=== PATIENT | female | born 1985 | race Caucasian/White ===

== ENCOUNTER 2017-10-01 12:18 | Inpatient (IN) | payer OTHER ==
[2017-10-01 13:57] VITALS: BMI 21.6
[2017-10-01] MEDS ORDERED: ACETAMINOPHEN 325 MG TABLET (FP) PO PRN (17:28)
[2017-10-01] MEDS ORDERED: MAGNESIUM CITRATE 300 ML BOTTLE PO PRN (17:28)
[2017-10-01] MEDS ORDERED: MAGNESIUM HYDROX 2400MG/30ML ORAL SUSPENSION 30 ML CUP PO PRN (17:28)
[2017-10-01] MEDS ORDERED: MENTHOL/PHENOL 1 EACH UD MM PRN (17:28)
[2017-10-01] MEDS ORDERED: IBUPROFEN 400 MG TABLET (FP) PO PRN (17:28)
[2017-10-01] MEDS ORDERED: hydrOXYzine PAMOATE 50 MG CAPSULE (FP) PO PRN (17:28)
[2017-10-01] MEDS ORDERED: LOPERAMIDE HCL 2 MG CAPSULE PO PRN (17:28)
[2017-10-01] MEDS ORDERED: MAG HYDROX/AL HYDROX/SIMETH 30 ML UNIT-DOSE CUP PO PRN (17:28)
[2017-10-01] MEDS ORDERED: P-EPHED 60MG/TRIPROLIDI 2.5MG TABLET PO PRN (17:28)
--- NOTE | 2017-10-01 17:28 | HP ---
"CIWA Score - CIWA Score Nausea/Vomitin Muscle Tremors: 4-Moderate,w/Arms Extend Anxiety: 3 Agitation: 3 Paroxysmal Sweats: 3 Orientation: 0-Oriented Tacttile Disturbances: 0-None Auditory Disturbances: 0-None Visual Disturbances: 0-None Headache: 0-None Present CIWA-Ar Total Score: 16 Admission ROS S - HPI Chief Complaint: alcohol and xanax withdrawal sx, wants to detox Allergies/Adverse Reactions: Allergies Allergy/AdvReac Type Severity Reaction Status Date / Time No Known Drug Allergies Allergy Verified 10/01/17 14:13 tunafish Allergy Intermediate Swelling Uncoded 10/01/17 14:12 History of Present Illness: 32 yo f with h/o opioid use disorder on MMTP ldm yesterday 40mg has not yet been verified , reports seziures when she stops using xanax and alcohol last seizure 3 days ago here for inpatietn detoxifciation form alcohol and xanax. Search Terms: Mechelle Jones, 1985 Search Date: 10/01/2017 05:33:23 PM The Drug Utilization Report below displays all of the controlled substance prescriptions, if any, that your patient has filled in the last twelve months. The information displayed on this report is compiled from pharmacy submissions to the Department, and accurately reflects the information as submitted by the pharmacies. This report was requested by: Frandy Del Toro | Reference #: [id number] There are no results for the search terms that you entered Patient reorts taking [place] clonidine to stop her seizures but no record. first time to detox, has been to rehab 3 years ago at [facility], 11 months sober at [facility]. o c/o withdrawal sx. PMHX bipolar do, no si at this time Exam Limitations: No Limitations - Ebola screening Have you traveled outside of the country in the last 21 days: No Have you had contact with anyone from an Ebola affected area: No Have you been sick,other than usual withdrawal symptoms: No Do you have a fever: No - Review of Systems Constitutional: Diaphoresis, Loss of Appetite, Night Sweats, Changes in sleep, Weakness, Unexplained wgt Loss EENT: reports: No Symptoms Reported Respiratory: reports: No Symptoms reported Cardiac: reports: No Symptoms Reported GI: reports: Nausea, Poor Appetite, Poor Fluid Intake, Indigestion, Abdominal cramping : reports: Dysuria, Discharge (whitish) Musculoskeletal: reports: Back Pain (chronic back pain) Integumentary: reports: Flushing, Sweating Neuro: reports: Headache, Seizure (withdrawl seizures last one few days ago), Tremors, Weakness, Unsteady Gait Endocrine: reports: No Symptoms Reported Hematology: reports: No Symptoms Reported Psychiatric: reports: Judgement Intact, Mood/Affect Appropiate, Orientated x3, Anxious, Depressed Other Systems: Reviewed and Negative Patient History - Patient Medical History Hx Anemia: No Hx Asthma: No Hx Chronic Obstructive Pulmonary Disease (COPD): No Hx Cancer: No Hx Cardiac Disorders: No Hx Congestive Heart Failure: No Hx Hypertension: No Hx Hypercholesterolemia: No Hx Pacemaker: No HX Cerebrovascular Accident: No Hx Seizures: Yes (09/30/17) Hx Dementia: No Hx Diabetes: No Hx Gastrointestinal Disorders: No Hx Liver Disease: No Hx Genitourinary Disorders: No Hx Sexually Transmitted Disorders: No Hx Renal Disease (ESRD): No Hx Thyroid Disease: No Hx Human Immunodeficiency Virus (HIV): No Hx Hepatitis C: Yes (no treatment to date) Hx Depression: Yes Hx Suicide Attempt: No Hx Bipolar Disorder: Yes Hx Schizophrenia: No - Patient Surgical History Past Surgical History: Yes Hx Appendectomy: Yes (2014) Anesthesia Reaction: No - PPD History Previous Implant?: Yes Documented Results: Negative w/o proof Implanted On Prior R Admission?: No PPD to be Administered?: Yes - Reproductive History Patient is a Female of Child Bearing Age (11 -55 yrs old): Yes Last Menstrual Period: 09/25/17 Patient : No - Smoking Cessation Smoking history: Current every day smoker Have you smoked in the past 12 months: Yes Aproximately how many cigarettes per day: 25 Hx Chewing Tobacco Use: No Initiated information on smoking cessation: Yes 'Breaking Loose' booklet given: 10/01/17 - Substance & Tx. History Hx Alcohol Use: Yes Hx Substance Use: Yes Substance Use Type: Alcohol, Cocaine, Heroin, Opiates, Prescribed, Tranquilizers Hx Substance Use Treatment: Yes (MMTP, rehab at [facility]) - Substances Abused Alcohol Route: Oral Frequency: Daily Amount used: beer(3-4 6 pks 12 pz cans) Age of first use: 17 Date of Last Use: 09/30/17 Heroin Route: Injection Frequency: Daily Amount used: 30 bags Age of first use: 17 Date of Last Use: 09/29/17 Alprazolam (Xanax) Route: Oral Frequency: Daily Amount used: 6 pills Age of first use: 19 Date of Last Use: 09/29/17 Crack Route: Smoking Frequency: Daily Amount used: $100 Age of first use: 17 Date of Last Use: 09/29/17 Marijuana/Hashish Route: Smoking Frequency: Daily Amount used: $20 Age of first use: 15 Date of Last Use: 09/30/17 Admission Physical Exam S - Vital Signs Vital Signs: Vital Signs - 24 hr 10/01/17 13:54 Temperature 96.9 F L Pulse Rate 78 Respiratory 20 Rate Blood Pressure 104/66 - Physical General Appearance: Yes: Nourished, Appropriately Dressed, Disheveled, Mild Distress, Moderate Distress, Thin, Tremorous, Irritable, Sweating, Anxious HEENTM: Yes: Within Normal Limits, EOMI, Hearing grossly Normal, Normal ENT Inspection, Normocephalic, Normal Voice, LILIAN, Pharynx Normal Respiratory: Yes: Within Normal Limits, Chest Non-Tender, Lungs Clear, Normal Breath Sounds, No Respiratory Distress, No Accessory Muscle Use Neck: Yes: Within Normal Limits, No masses,lesions,Nodules, Supple, Trachea in good position Breast: Yes: Breast Exam Deferred Cardiology: Yes: Within Normal Limits, Regular Rhythm, Regular Rate, S1, S2 Abdominal: Yes: Normal Bowel Sounds, Non Tender, Flat, Soft, Tenderness Genitourinary: Yes: Within Normal Limits Back: Yes: Within Normal Limits, Normal Inspection Musculoskeletal: Yes: full range of Motion, Gait Steady, Pelvis Stable, Back pain Extremities: Yes: Normal Capillary Refill, Normal Range of Motion, Non-Tender, Tremors Neurological: Yes: recycling manager II-XII NML intact, Fully Oriented, Alert, Motor Strength 5/5, Normal Response, Depressed Affect Integumentary: Yes: Normal Color, Warm, Diaphoresis, Moist Lymphatic: Yes: Within Normal Limits - Addiitonal Findings: withdrawal sx - Diagnostic (1) Alcohol dependence with uncomplicated withdrawal Current Visit: Yes Status: Acute (2) Cannabis abuse, uncomplicated Current Visit: Yes Status: Acute (3) Nicotine dependence Current Visit: Yes Status: Acute (4) Opioid dependence on agonist therapy Current Visit: Yes Status: Acute (5) Sedative, hypnotic or anxiolytic dependence with withdrawal, uncomplicated Current Visit: Yes Status: Acute (6) Cocaine dependence Current Visit: Yes Status: Acute (7) Seizures Current Visit: Yes Status: Acute (8) Vaginal discharge Current Visit: Yes Status: Acute (9) Toothache Current Visit: Yes Status: Acute Cleared for Admission [facility] - Detox or Rehab [facility] Level of Care: Medically Managed Detox Regimen/Protocol: Valium [facility] Breath Alcohol Content Breath Alcohol Content: 0 Urine Pregancy Test - Result Urine Test Results: Negative- NO Line Present Urine Drug Screen - Results Drug Screen Negative: No Urine Drug Screen Results: RIGO-Cocaine, MTD-Methadone"
[2017-10-01] MEDS ORDERED: diazePAM 5 MG TABLET PO ONE (18:30)
[2017-10-01] MEDS: PANTOPRAZOLE 40 MG TABLET (FP) PO SCH (18:39)
[2017-10-01] MEDS: NICOTINE 21 MG/24 HOURS TOPICAL PATCH TD SCH (20:09)
[2017-10-01] MEDS: MAG HYDROX/ALH/SMC/DPHA/LIDO 180 ML MOUTHWASH MM SCH (20:09)
[2017-10-01] MEDS: NAPROXEN 500 MG TABLET (FP) PO SCH (22:13)
[2017-10-01] MEDS: MICONAZOLE NITRATE 100 MG SUPP SUPP.VAG PV SCH (22:13)
[2017-10-01] MEDS: THIAMINE HCL 100 MG TABLET (FP) PO SCH (22:13)
[2017-10-01] MEDS: diazePAM 5 MG TABLET PO SCH (22:14)
[2017-10-01] MEDS: NICOTINE POLACRILEX 4 MG GUM BC PRN (22:15)
[2017-10-02] MEDS: MAG HYDROX/ALH/SMC/DPHA/LIDO 180 ML MOUTHWASH MM SCH ×4 (01:03→17:31)
[2017-10-02] MEDS: diazePAM 5 MG TABLET PO SCH ×3 (06:55→22:14)
[2017-10-02 09:09] LABS: HIV 1 & 2 AB NEGATIVE; HIV 1 AGp24 NEGATIVE
[2017-10-02 09:56] LABS: MCH 25.6 pg (25.7-33.7); MCHC 31.2 g/dl (32.0-36.0); MEAN PLT VOLUME 11.3 fl (7.5-11.1); PLATELET COUNT 190 K/MM3 (134-434); RDW 18.9 % (11.6-15.6); WHITE BLOOD COUNT 5.9 K/mm3 (4.0-10.0)
[2017-10-02 10:01] LABS: ALBUMIN 3.5 g/dl (3.4-5.0); ANION GAP 6 (8-16); CALCIUM 9.2 mg/dL (8.5-10.1); CO2 31 mmol/L (21-32); GLUCOSE,RANDOM 92 mg/dL (74-106)
[2017-10-02 10:05] LABS: ALK PHOS 78 U/L (45-117); BILIRUBIN,TOTAL 0.6 mg/dL (0.2-1.0); CREATININE 0.7 mg/dL (0.55-1.02); SGOT/AST 59 U/L (15-37); SGPT/ALT 48 U/L (12-78)
[2017-10-02 10:27] LABS: SICKLE CELL SCREEN NEGATIVE (NEGATIVE)
[2017-10-02] MEDS: NAPROXEN 500 MG TABLET (FP) PO SCH ×2 (10:54→22:14)
[2017-10-02] MEDS: PANTOPRAZOLE 40 MG TABLET (FP) PO SCH (10:54)
[2017-10-02] MEDS: PRENATAL VITAMINS W/ FOLIC ACID TABLET (FP) PO SCH (10:54)
[2017-10-02] MEDS: METHADONE HCL 40 MG DISPERSABLE TABLET PO SCH (10:54)
[2017-10-02] MEDS: NICOTINE POLACRILEX 4 MG GUM BC PRN (10:57)
[2017-10-02] MEDS: NICOTINE 21 MG/24 HOURS TOPICAL PATCH TD SCH (10:57)
--- NOTE | 2017-10-02 11:16 | PN ---
S CIWA - CIWA Score Nausea/Vomitin Muscle Tremors: 3 Anxiety: 3 Agitation: 2 Paroxysmal Sweats: 1-Minimal Palms Moist Orientation: 0-Oriented Tacttile Disturbances: 1-Very Mild Itch/Numbness Auditory Disturbances: 1-Very Mild Visual Disturbances: 0-None Headache: 2-Mild CIWA-Ar Total Score: 16 BHS Progress Note (SOAP) Subjective: alert,irritable,anxious,interrupted sleep,tremor,pain in the body Objective: 10/02/17 11:14 Vital Signs Temperature 97.7 F 10/02/17 10:18 Pulse Rate 68 10/02/17 10:18 Respiratory Rate 18 10/02/17 10:18 Blood Pressure 119/59 10/02/17 10:18 O2 Sat by Pulse Oximetry (%) ekg nsr st in v2 no chest pain,no sob,no dizziness Laboratory Last Values WBC 5.9 K/mm3 (4.0-10.0) 10/02/17 06:00 RBC 4.61 M/mm3 (3.60-5.2) 10/02/17 06:00 Hgb 11.8 GM/dL (10.7-15.3) 10/02/17 06:00 Hct 37.8 % (32.4-45.2) 10/02/17 06:00 MCV 82.0 fl (80-96) 10/02/17 06:00 MCH 25.6 pg (25.7-33.7) L 10/02/17 06:00 MCHC 31.2 g/dl (32.0-36.0) L 10/02/17 06:00 RDW 18.9 % (11.6-15.6) H 10/02/17 06:00 Plt Count 190 K/MM3 (134-434) 10/02/17 06:00 MPV 11.3 fl (7.5-11.1) H 10/02/17 06:00 Sickle Cell Screen Negative (NEGATIVE) 10/02/17 06:00 Sodium 146 mmol/L (136-145) H 10/02/17 06:00 Potassium 4.1 mmol/L (3.5-5.1) 10/02/17 06:00 Chloride 109 mmol/L (98-107) H 10/02/17 06:00 Carbon Dioxide 31 mmol/L (21-32) 10/02/17 06:00 Anion Gap 6 (8-16) L 10/02/17 06:00 BUN 12 mg/dL (7-18) 10/02/17 06:00 Creatinine 0.7 mg/dL (0.55-1.02) 10/02/17 06:00 Creat Clearance w eGFR > 60 (>60) 10/02/17 06:00 Random Glucose 92 mg/dL (74-106) 10/02/17 06:00 Calcium 9.2 mg/dL (8.5-10.1) 10/02/17 06:00 Total Bilirubin 0.6 mg/dL (0.2-1.0) 10/02/17 06:00 AST 59 U/L (15-37) H 10/02/17 06:00 ALT 48 U/L (12-78) 10/02/17 06:00 Alkaline Phosphatase 78 U/L (45-117) 10/02/17 06:00 Total Protein 7.0 g/dl (6.4-8.2) 10/02/17 06:00 Albumin 3.5 g/dl (3.4-5.0) 10/02/17 06:00 HIV 1&2 Antibody Screen Negative 10/01/17 15:00 HIV P24 Antigen Negative 10/01/17 15:00 Assessment: 10/02/17 11:15 withdrawal symptom Plan: continue detox
[2017-10-02] MEDS: guaiFENesin/D-METHORPHAN HB 10 ML UNIT-DOSE CUPS PO PRN (12:05)
[2017-10-02 14:33] LABS: URINE APPEARANCE CLOUDY; URINE BILIRUBIN NEGATIVE (NEGATIVE); URINE BLOOD NEGATIVE (NEGATIVE); URINE COLOR YELLOW; URINE GLUCOSE (UA) NEGATIVE (NEGATIVE); URINE KETONE NEGATIVE (NEGATIVE); URINE NITRITE NEGATIVE (NEGATIVE); URINE PROTEIN NEGATIVE (NEGATIVE); URINE UROBILINOGEN NEGATIVE mg/dL (0.2-1.0)
[2017-10-02] MEDS: diazePAM 5 MG TABLET PO PRN (17:31)
--- NOTE | 2017-10-02 18:28 | CONSULT ---
[facility] Psychiatric Consult - Data Date of interview: 10/02/17 Admission source: [facility] Identifying data: Approached for psychiatric interview.Patient is angry and irritable.Ms Jones REFUSED to talk to this advertising copy writer.
[2017-10-02 19:54] LABS: URINE LEUK ESTERASE 1+ (NEGATIVE)
[2017-10-02] MEDS: MICONAZOLE NITRATE 100 MG SUPP SUPP.VAG PV SCH (22:13)
[2017-10-02] MEDS: THIAMINE HCL 100 MG TABLET (FP) PO SCH (22:13)
[2017-10-02 23:10] LABS: URINE RBC 0-3 /hpf (0-3)
[2017-10-02 23:11] LABS: CALCIUM OXALATE CRYSTALS MANY /hpf (NONE SEEN)
[2017-10-03] MEDS: MAG HYDROX/ALH/SMC/DPHA/LIDO 180 ML MOUTHWASH MM SCH ×5 (00:29→23:20)
[2017-10-03] MEDS: METHADONE HCL 40 MG DISPERSABLE TABLET PO SCH (05:28)
[2017-10-03] MEDS: diazePAM 5 MG TABLET PO PRN (06:43)
[2017-10-03] MEDS: diazePAM 5 MG TABLET PO SCH ×2 (10:42→22:15)
[2017-10-03] MEDS: PRENATAL VITAMINS W/ FOLIC ACID TABLET (FP) PO SCH (10:42)
[2017-10-03] MEDS: NAPROXEN 500 MG TABLET (FP) PO SCH ×2 (10:42→22:15)
[2017-10-03] MEDS: PANTOPRAZOLE 40 MG TABLET (FP) PO SCH (10:42)
[2017-10-03] MEDS: NICOTINE 21 MG/24 HOURS TOPICAL PATCH TD SCH (10:43)
[2017-10-03] MEDS: NICOTINE POLACRILEX 4 MG GUM BC PRN (10:44)
--- NOTE | 2017-10-03 14:04 | PN ---
[facility] CIWA - CIWA Score Nausea/Vomitin-No Nausea/No Vomiting Muscle Tremors: 4-Moderate,w/Arms Extend Anxiety: 4-Mod. Anxious/Guarded Agitation: 3 Paroxysmal Sweats: 3 Orientation: 0-Oriented Tacttile Disturbances: 0-None Auditory Disturbances: 0-None Visual Disturbances: 0-None Headache: 0-None Present CIWA-Ar Total Score: 14 S Progress Note (SOAP) Subjective: Anxiety,tremors,sweating,interrupted sleep,restless Objective: 10/03/17 14:03 Vital Signs - 8 hr 10/03/17 10:00 Temperature 97.3 F L Pulse Rate 83 Respiratory 18 Rate Blood Pressure 121/64 Laboratory Tests 10/01/17 10/01/17 10/02/17 06:00 15:00 06:00 WBC 5.9 RBC 4.61 Hgb 11.8 Hct 37.8 MCV 82.0 MCH 25.6 L MCHC 31.2 L RDW 18.9 H Plt Count 190 MPV 11.3 H Sickle Cell Screen Negative Sodium Potassium Chloride Carbon Dioxide Anion Gap BUN Creatinine Creat Clearance w eGFR Random Glucose Calcium Total Bilirubin AST ALT Alkaline Phosphatase Total Protein Albumin Urine Color Urine Appearance Urine pH Ur Specific [place] Urine Protein Urine Glucose (UA) Urine Ketones Urine Blood Urine Nitrite Urine Bilirubin Urine Urobilinogen Ur Leukocyte Esterase Urine RBC Urine WBC Ur Epithelial Cells Calcium Oxalate Crystal RPR Titer Hepatitis C Antibody >11.0 H HIV 1&2 Antibody Screen Negative HIV P24 Antigen Negative 10/02/17 10/02/17 10/02/17 06:00 06:00 10:00 WBC RBC Hgb Hct MCV MCH MCHC RDW Plt Count MPV Sickle Cell Screen Sodium 146 H Potassium 4.1 Chloride 109 H Carbon Dioxide 31 Anion Gap 6 L BUN 12 Creatinine 0.7 Creat Clearance w eGFR > 60 Random Glucose 92 Calcium 9.2 Total Bilirubin 0.6 AST 59 H ALT 48 Alkaline Phosphatase 78 Total Protein 7.0 Albumin 3.5 Urine Color Yellow Urine Appearance Cloudy Urine pH 5.0 Ur Specific [place] 1.020 Urine Protein Negative Urine Glucose (UA) Negative Urine Ketones Negative Urine Blood Negative Urine Nitrite Negative Urine Bilirubin Negative Urine Urobilinogen Negative Ur Leukocyte Esterase 1+ H Urine RBC 0-3 Urine WBC 5-10 Ur Epithelial Cells 10-15 Calcium Oxalate Crystal Many RPR Titer Nonreactive Hepatitis C Antibody HIV 1&2 Antibody Screen HIV P24 Antigen labs noted Assessment: 10/03/17 14:04 Withdrawal sx. Plan: Continue detox
[2017-10-03] MEDS: THIAMINE HCL 100 MG TABLET (FP) PO SCH (22:15)
[2017-10-03] MEDS: MICONAZOLE NITRATE 100 MG SUPP SUPP.VAG PV SCH (22:15)
[2017-10-04] MEDS: MAG HYDROX/ALH/SMC/DPHA/LIDO 180 ML MOUTHWASH MM SCH ×3 (05:47→17:46)
[2017-10-04] MEDS: METHADONE HCL 40 MG DISPERSABLE TABLET PO SCH (05:53)
[2017-10-04] MEDS ORDERED: LIDOCAINE VISCOUS 2% ORAL/TOP 20 ML UNIT-DOSE CUP MM PRN (06:39)
[2017-10-04] MEDS: diazePAM 5 MG TABLET PO SCH ×2 (10:44→22:15)
[2017-10-04] MEDS: PANTOPRAZOLE 40 MG TABLET (FP) PO SCH (10:44)
[2017-10-04] MEDS: PRENATAL VITAMINS W/ FOLIC ACID TABLET (FP) PO SCH (10:44)
[2017-10-04] MEDS: NAPROXEN 500 MG TABLET (FP) PO SCH ×2 (10:44→22:15)
[2017-10-04] MEDS: NICOTINE POLACRILEX 4 MG GUM BC PRN (10:45)
[2017-10-04] MEDS: NICOTINE 21 MG/24 HOURS TOPICAL PATCH TD SCH (10:47)
--- NOTE | 2017-10-04 11:35 | PN ---
BHS Progress Note (SOAP) Subjective: Sweating,interrupted sleep,restless Objective: 10/04/17 11:33 Vital Signs - 8 hr 10/04/17 10/04/17 06:00 09:43 Temperature 98.7 F 97.4 F L Pulse Rate 87 75 Respiratory 18 18 Rate Blood Pressure 121/67 107/64 Laboratory Tests 10/01/17 10/01/17 10/02/17 06:00 15:00 06:00 WBC 5.9 RBC 4.61 Hgb 11.8 Hct 37.8 MCV 82.0 MCH 25.6 L MCHC 31.2 L RDW 18.9 H Plt Count 190 MPV 11.3 H Sickle Cell Screen Negative Sodium Potassium Chloride Carbon Dioxide Anion Gap BUN Creatinine Creat Clearance w eGFR Random Glucose Calcium Total Bilirubin AST ALT Alkaline Phosphatase Total Protein Albumin Urine Color Urine Appearance Urine pH Ur Specific [place] Urine Protein Urine Glucose (UA) Urine Ketones Urine Blood Urine Nitrite Urine Bilirubin Urine Urobilinogen Ur Leukocyte Esterase Urine RBC Urine WBC Ur Epithelial Cells Calcium Oxalate Crystal RPR Titer Hepatitis C Antibody >11.0 H HIV 1&2 Antibody Screen Negative HIV P24 Antigen Negative 10/02/17 10/02/17 10/02/17 06:00 06:00 10:00 WBC RBC Hgb Hct MCV MCH MCHC RDW Plt Count MPV Sickle Cell Screen Sodium 146 H Potassium 4.1 Chloride 109 H Carbon Dioxide 31 Anion Gap 6 L BUN 12 Creatinine 0.7 Creat Clearance w eGFR > 60 Random Glucose 92 Calcium 9.2 Total Bilirubin 0.6 AST 59 H ALT 48 Alkaline Phosphatase 78 Total Protein 7.0 Albumin 3.5 Urine Color Yellow Urine Appearance Cloudy Urine pH 5.0 Ur Specific [place] 1.020 Urine Protein Negative Urine Glucose (UA) Negative Urine Ketones Negative Urine Blood Negative Urine Nitrite Negative Urine Bilirubin Negative Urine Urobilinogen Negative Ur Leukocyte Esterase 1+ H Urine RBC 0-3 Urine WBC 5-10 Ur Epithelial Cells 10-15 Calcium Oxalate Crystal Many RPR Titer Nonreactive Hepatitis C Antibody HIV 1&2 Antibody Screen HIV P24 Antigen labs noted Assessment: 10/04/17 11:34 Withdrawal sx. Plan: Continue detox
[2017-10-04] MEDS: THIAMINE HCL 100 MG TABLET (FP) PO SCH (22:15)
[2017-10-04] MEDS: MICONAZOLE NITRATE 100 MG SUPP SUPP.VAG PV SCH (22:15)
[2017-10-05] MEDS: guaiFENesin/D-METHORPHAN HB 10 ML UNIT-DOSE CUPS PO PRN (04:39)
[2017-10-05] MEDS: METHADONE HCL 40 MG DISPERSABLE TABLET PO SCH (05:32)
[2017-10-05 06:25] VITALS: BP 100/53; PULSE 78; TEMP 97.5
[2017-10-05] MEDS: MAG HYDROX/ALH/SMC/DPHA/LIDO 180 ML MOUTHWASH MM SCH ×2 (06:38→07:38)
[2017-10-05] MEDS: NICOTINE POLACRILEX 4 MG GUM BC PRN ×2 (07:44→09:52)
--- NOTE | 2017-10-05 08:43 | DS ---
[facility] Detox Discharge Summary Admission Date: 10/01/17 Discharge Date: 10/05/17 - History Present History: Alcohol Dependence, Cannabis Dependence, Cocaine Dependence, Opioid Dependence, Sedative Dependence - Physical Exam Results Vital Signs: Vital Signs Temperature 97.5 F L 10/05/17 06:25 Pulse Rate 78 10/05/17 06:25 Respiratory Rate 18 10/05/17 06:25 Blood Pressure 100/53 10/05/17 06:25 O2 Sat by Pulse Oximetry (%) - Treatment Hospital Course: Detox Protocol Followed, Detoxed Safely, Responded well, Discharged Condition Good, Rehab Referral Accepted - Medication Discharge Medications: Ambulatory Orders Quetiapine Fumarate [Seroquel -] 100 mg PO HS 10/01/17 Sertraline HCl [Zoloft -] 50 mg PO DAILY 10/01/17 Venlafaxine HCl [Effexor -] 50 mg PO DAILY 10/01/17 - Diagnosis (1) Alcohol dependence with uncomplicated withdrawal Current Visit: Yes Status: Chronic (2) Cannabis abuse, uncomplicated Current Visit: Yes Status: Chronic (3) Cocaine dependence Current Visit: Yes Status: Chronic Qualifiers: Substance use status: uncomplicated Qualified Code(s): F14.20 - Cocaine dependence, uncomplicated (4) Nicotine dependence Current Visit: Yes Status: Chronic Qualifiers: Nicotine product type: cigarettes Substance use status: uncomplicated Qualified Code(s): F17.210 - Nicotine dependence, cigarettes, uncomplicated (5) Opioid dependence on agonist therapy Current Visit: Yes Status: Acute (6) Sedative, hypnotic or anxiolytic dependence with withdrawal, uncomplicated Current Visit: Yes Status: Chronic (7) Seizures Current Visit: Yes Status: Suspected (8) Toothache Current Visit: Yes Status: Acute (9) Vaginal discharge Current Visit: Yes Status: Chronic - AMA Did Patient Leave Against Medical Advice: No
[2017-10-05] MEDS: PRENATAL VITAMINS W/ FOLIC ACID TABLET (FP) PO SCH (09:40)
[2017-10-05] MEDS: PANTOPRAZOLE 40 MG TABLET (FP) PO SCH (09:40)
[2017-10-05] MEDS: NAPROXEN 500 MG TABLET (FP) PO SCH (09:41)
--- NOTE | 2017-10-05 09:41 | EKG ---
Test Reason : Blood Pressure : / mmHG Vent. Rate : 079 BPM Atrial Rate : 079 BPM P-R Int : 154 ms QRS Dur : 102 ms QT Int : 358 ms P-R-T Axes : 051 022 021 degrees QTc Int : 410 ms NORMAL SINUS RHYTHM SEPTAL INFARCT , AGE UNDETERMINED ABNORMAL ECG NO PREVIOUS ECGS AVAILABLE Confirmed by GALINA HUYNH, CARMELO ([id number]) on 10/05/2017 9:40:52 AM Referred By: CHERYL SWANN Confirmed By:CARMELO MOJICA MD
[2017-10-05] MEDS ORDERED: diazePAM 5 MG TABLET PO SCH (10:00)
== END 2017-10-05 09:45 | disposition home or self-care (01) | DRG 773 ==
LOC: YASAS 12:18 → Y6N 16:10
PROVIDERS: ADMIT Internal Medicine; ATTEND Internal Medicine
PROC: HZ2ZZZZ Detoxification Services for Substance Abuse Treatment (ICD-10-PCS; principal; 2017-10-01)
DX: F11.20 Opioid dependence, uncomplicated (principal); F13.230 Sedative, hypnotic or anxiolytic dependence with withdrawal, uncomplicated; F10.230 Alcohol dependence with withdrawal, uncomplicated; F14.20 Cocaine dependence, uncomplicated; F12.20 Cannabis dependence, uncomplicated; F17.210 Nicotine dependence, cigarettes, uncomplicated; F31.9 Bipolar disorder, unspecified; G40.909 Epilepsy, unspecified, not intractable, without status epilepticus; B18.2 Chronic viral hepatitis C; K08.89 Other specified disorders of teeth and supporting structures; N89.8 Other specified noninflammatory disorders of vagina
CPT/HCPCS: 36415; 80053; 81003; 81015; 85027; 85660; 86593; 86803; 87389; 87522; 93005; 93010

== ENCOUNTER 2019-03-24 13:33 | Inpatient (IN) | payer OTHER ==
[2019-03-24 18:21] VITALS: BMI 23.3
--- NOTE | 2019-03-24 20:32 | HP ---
CIWA Score Nausea/Vomitin-No Nausea/No Vomiting Muscle Tremors: 2 Anxiety: 0-No Anxiety, at Ease Agitation: 2 Paroxysmal Sweats: 3 Orientation: 1-Uncertain about Date Tacttile Disturbances: 1-Very Mild Itch/Numbness Auditory Disturbances: 0-None Visual Disturbances: 2-Mild Sensitivity Headache: 0-None Present CIWA-Ar Total Score: 11 - Admission Criteria [facility] Guidelines: Admission for Medically Managed Detox: Requires at least one of the followin. CIWA greater than 12 2. Seizures within the past 24 hours 3. Delirium tremens within the past 24 hours 4. Hallucinations within the past 24 hours 5. Acute intervention needed for co occurring medical disorder 6. Acute intervention needed for co occurring psychiatric disorder 7. Severe withdrawal that cannot be handled at a lower level of care (continued vomiting, continued diarrhea, abnormal vital signs) requiring intravenous medication and/or fluids 8. Patient presents the following: Acute intervention needed for co-occurring med or psych disorder Admission Criteria Met: Admission criteria met Admission ROS [facility] Chief Complaint: alcohol withdrawal Allergies/Adverse Reactions: Allergies Allergy/AdvReac Type Severity Reaction Status Date / Time Fish Containing Products Allergy Intermediate Swelling Verified 03/24/19 18:13 No Known Drug Allergies Allergy Verified 03/24/19 18:13 tunafish Allergy Intermediate Swelling Uncoded 03/24/19 18:13 History of Present Illness: Patient is a 34 yo female, homeless, with hx of alcohol dependence is here seeking inpatient detox. Patient reports was evaluated last night at [facility] for withdrawal symptoms. Patient is linked to Methadone Treatment Program unable to name the facility on maintenance 60 mg qd, last medicated 60mg , dose pending verification, continues heroin use. Reports remote benzo and alcohol withdrawal seizure in 2017. PMHX: Hep C. Psych: bipolar no treatment. Denies SI/HI. Exam Limitations: No Limitations - Ebola screening Have you traveled outside of the country in the last 21 days: No Have you had contact with anyone from an Ebola affected area: No Do you have a fever: No - Review of Systems Constitutional: Chills, Loss of Appetite, Changes in sleep (no sleep x 2 days), Weakness EENT: reports: No Symptoms Reported Respiratory: reports: No Symptoms reported Cardiac: reports: No Symptoms Reported GI: reports: Diarrhea (soiled self prior to assessment), Poor Fluid Intake, Abdominal cramping : reports: No Symptoms Reported Musculoskeletal: reports: No Symptoms Reported Integumentary: reports: Pruritus Neuro: reports: See HPI Endocrine: reports: No Symptoms Reported Hematology: reports: No Symptoms Reported Psychiatric: reports: Orientated x3, Depressed Other Systems: Reviewed and Negative Patient History - Patient Medical History Hx Anemia: No Hx Asthma: No Hx Chronic Obstructive Pulmonary Disease (COPD): No Hx Cancer: No Hx Cardiac Disorders: No Hx Congestive Heart Failure: No Hx Hypertension: No Hx Hypercholesterolemia: No Hx Pacemaker: No HX Cerebrovascular Accident: No Hx Seizures: Yes (09/30/17) Hx Dementia: No Hx Diabetes: No Hx Gastrointestinal Disorders: No Hx Liver Disease: No Hx Genitourinary Disorders: No Hx Sexually Transmitted Disorders: No Hx Renal Disease (ESRD): No Hx Thyroid Disease: No Hx Human Immunodeficiency Virus (HIV): No Hx Hepatitis C: Yes (no treatment to date) Hx Depression: Yes Hx Suicide Attempt: No Hx Bipolar Disorder: Yes Hx Schizophrenia: No - Patient Surgical History Past Surgical History: Yes Hx Appendectomy: Yes (2014) Anesthesia Reaction: No - PPD History Previous Implant?: No Documented Results: Negative w/proof Date: 10/03/17 PPD to be Administered?: Yes - Reproductive History Patient is a Female of Child Bearing Age (11 -55 yrs old): Yes (patient unable to provide last Menstrual period date) Last Menstrual Period: 09/25/17 Patient : No - Smoking Cessation Smoking history: Current every day smoker Have you smoked in the past 12 months: Yes Aproximately how many cigarettes per day: 25 Hx Chewing Tobacco Use: No Initiated information on smoking cessation: Yes 'Breaking Loose' booklet given: 03/24/19 - Substance & Tx. History Hx Alcohol Use: Yes Hx Substance Use: Yes Substance Use Type: Alcohol, Tranquilizers Hx Substance Use Treatment: Yes (Last detox one year ago, does not recall the name of the facility ) - Substances abused Heroin Substance route: Injection Frequency: Daily Amount used: 5 bags/day Age of first use: 17 Date of last use: 03/23/19 Alcohol Substance route: Oral Frequency: Daily Amount used: 2 cases of beer 12 oz + 1/2 pint Age of first use: 17 Date of last use: 03/24/19 Family Disease History - Family Disease History Family History: Unable to Obtain Admission Physical Exam BHS - Vital Signs Vital Signs: Vital Signs - 24 hr 03/24/19 18:18 Temperature 96.5 F L Pulse Rate 75 Respiratory 20 Rate Blood Pressure 114/56 L - Physical General Appearance: Yes: Disheveled (malodorous), Sweating, Anxious, Other ( lethargic but arousable, reports no sleep x 2 days) HEENTM: Yes: EOMI, Hearing grossly Normal, Normal ENT Inspection, Normocephalic , Normal Voice, LILIAN, Pharynx Normal, Tm's normal, Other (cheilitis) Respiratory: Yes: Chest Non-Tender, Lungs Clear, Normal Breath Sounds, No Respiratory Distress, No Accessory Muscle Use Neck: Yes: Within Normal Limits Breast: Yes: Breast Exam Deferred Cardiology: Yes: Regular Rhythm, Regular Rate Abdominal: Yes: Normal Bowel Sounds, Non Tender, Flat, Soft, Other (cheilitis) Genitourinary: Yes: Within Normal Limits Back: Yes: Normal Inspection Musculoskeletal: Yes: full range of Motion, Gait Steady, Pelvis Stable Extremities: Yes: Normal Capillary Refill, Normal Inspection, Normal Range of Motion, Non-Tender Neurological: Yes: shiatsu therapist II-XII NML intact, Fully Oriented, Alert, Motor Strength 5/5, Depressed Affect Integumentary: Yes: Normal Color, Warm, Diaphoresis Lymphatic: Yes: Within Normal Limits - Diagnostic (1) Opioid dependence on agonist therapy Current Visit: Yes Status: Acute (2) Alcohol dependence with uncomplicated withdrawal Current Visit: Yes Status: Chronic (3) Nicotine dependence Current Visit: Yes Status: Chronic Qualifiers: Nicotine product type: cigarettes Substance use status: uncomplicated Qualified Code(s): F17.210 - Nicotine dependence, cigarettes, uncomplicated (4) Hepatitis C Current Visit: Yes Status: Chronic Qualifiers: Viral hepatitis chronicity: chronic Cleared for Admission [facility] - Detox or Rehab [facility] Level of Care: Medically Managed Detox Regimen/Protocol: Librium Breathalyzer - Breathalyzer Breathalyzer: 0 Urine Drug Screen - Test Device Lot number: [id number] Expiration date: 12/16/20 - Control Is test valid?: Yes - Results Drug screen NEGATIVE: No Urine drug screen results: RIGO-Cocaine, MOP-Opiates, MTD-Methadone Inpatient Rehab Admission - Rehab Decision to Admit Inpatient rehab admission?: No
[2019-03-24] MEDS ORDERED: MELATONIN 5 MG TABLETS PO PRN (20:40)
[2019-03-24] MEDS ORDERED: MENTHOL/PHENOL 1 EACH UD MM PRN (20:40)
[2019-03-24] MEDS ORDERED: MAGNESIUM CITRATE 300 ML BOTTLE PO PRN (20:40)
[2019-03-24] MEDS ORDERED: ACETAMINOPHEN 325 MG TABLET (FP) PO PRN ×2 (20:40)
[2019-03-24] MEDS ORDERED: BISMUTH SUBSALICYLATE 524 MG/30 ML UD PO PRN (20:40)
[2019-03-24] MEDS ORDERED: IBUPROFEN 400 MG TABLET (FP) PO PRN (20:40)
[2019-03-24] MEDS ORDERED: MAGNESIUM HYDROX 2400MG/30ML ORAL SUSPENSION 30 ML CUP PO PRN (20:40)
[2019-03-24] MEDS ORDERED: METHOCARBAMOL 500 MG TABLET PO PRN (20:40)
[2019-03-24] MEDS ORDERED: MAG HYDROX/AL HYDROX/SIMETH 30 ML UNIT-DOSE CUP PO PRN (20:40)
[2019-03-24] MEDS ORDERED: NICOTINE POLACRILEX 2 MG GUM BUC PRN (20:40)
[2019-03-24] MEDS: diazePAM 5 MG TABLET PO SCH (22:16)
[2019-03-24] MEDS: THIAMINE HCL 100 MG TABLET (FP) PO SCH (22:17)
[2019-03-25] MEDS: diazePAM 5 MG TABLET PO SCH ×3 (06:20→22:51)
[2019-03-25] MEDS ORDERED: METHADONE HCL 10 MG TABLET PO SCH (09:30)
--- NOTE | 2019-03-25 09:32 | PN ---
[facility] CIWA - CIWA Score Nausea/Vomitin Muscle Tremors: 3 Anxiety: 3 Agitation: 2 Paroxysmal Sweats: 1-Minimal Palms Moist Orientation: 0-Oriented Tacttile Disturbances: 1-Very Mild Itch/Numbness Auditory Disturbances: 1-Very Mild Visual Disturbances: 0-None Headache: 2-Mild CIWA-Ar Total Score: 15 BHS Progress Note (SOAP) Subjective: alert,irritable,anxious,interrupted sleep,tremor Objective: 03/25/19 09:31 Vital Signs Temperature 97.7 F 03/25/19 06:04 Pulse Rate 77 03/25/19 06:04 Respiratory Rate 16 03/25/19 06:04 Blood Pressure 105/55 L 03/25/19 06:04 O2 Sat by Pulse Oximetry (%) labs pending Assessment: 03/25/19 09:32 withdrawal symptom Plan: continue detox
[2019-03-25] MEDS ORDERED: METHADONE HCL 40 MG DISPERSABLE TABLET ONE (09:54)
[2019-03-25] MEDS ORDERED: METHADONE HCL 10 MG TABLET ONE (09:54)
[2019-03-25] MEDS: PRENATAL VITAMINS W/ FOLIC ACID TABLET (FP) PO SCH (09:55)
[2019-03-25] MEDS: METHADONE 40 MG, METHADONE 20 MG PO SCH (09:55)
[2019-03-25] MEDS: NICOTINE 14 MG/24 HOURS TOPICAL PATCH TD SCH (09:55)
[2019-03-25 10:04] LABS: HEMATOCRIT 36.6 % (32.4-45.2); HEMOGLOBIN 11.8 GM/dL (10.7-15.3); MCH 26.6 pg (25.7-33.7); MCHC 32.1 g/dl (32.0-36.0); MEAN CELL VOLUME 82.9 fl (80-96); MEAN PLT VOLUME 10.2 fl (7.5-11.1); PLATELET COUNT 151 K/MM3 (134-434); RBC 4.42 M/mm3 (3.60-5.2); RDW 16.8 % (11.6-15.6); WHITE BLOOD COUNT 3.8 K/mm3 (4.0-10.0)
[2019-03-25 10:20] LABS: BILIRUBIN,TOTAL 0.3 mg/dL (0.2-1); CALCIUM 8.6 mg/dL (8.5-10.1); CREATININE 0.7 mg/dL (0.55-1.3); POTASSIUM 3.7 mmol/L (3.5-5.1); TOT PROT 6.1 g/dl (6.4-8.2)
--- NOTE | 2019-03-25 14:51 | EKG ---
Test Reason : Blood Pressure : / mmHG Vent. Rate : 066 BPM Atrial Rate : 066 BPM P-R Int : 146 ms QRS Dur : 106 ms QT Int : 430 ms P-R-T Axes : 053 029 029 degrees QTc Int : 450 ms NORMAL SINUS RHYTHM SEPTAL INFARCT (CITED ON OR BEFORE 01-OCT-2017) NON-SPECIFIC INTRA-VENTRICULAR CONDUCTION DELAY NONSPECIFIC T WAVE ABNORMALITY ABNORMAL ECG Confirmed by INDIA CADENA MD ([id number]) on 03/25/2019 2:50:54 PM Referred By: Confirmed By:INDIA CADENA MD
[2019-03-25] MEDS: diazePAM 5 MG TABLET PO PRN (18:31)
[2019-03-25] MEDS: THIAMINE HCL 100 MG TABLET (FP) PO SCH (22:51)
[2019-03-26] MEDS: diazePAM 5 MG TABLET PO PRN ×2 (01:07→18:43)
[2019-03-26] MEDS ORDERED: METHADONE HCL 10 MG TABLET ONE (05:03)
[2019-03-26] MEDS ORDERED: METHADONE HCL 40 MG DISPERSABLE TABLET ONE (05:04)
[2019-03-26] MEDS: METHADONE 40 MG, METHADONE 20 MG PO SCH (05:33)
--- NOTE | 2019-03-26 10:06 | PN ---
S CIWA - CIWA Score Nausea/Vomitin-No Nausea/No Vomiting Muscle Tremors: 2 Anxiety: 2 Agitation: 1-Slight > Activity Paroxysmal Sweats: 4-Forehead w/Sweat Beads Orientation: 0-Oriented Tacttile Disturbances: 0-None Auditory Disturbances: 0-None Visual Disturbances: 0-None Headache: 2-Mild CIWA-Ar Total Score: 11 BHS Progress Note (SOAP) Subjective: c/o anxiety,interrupted sleep,tremor Objective: 03/26/19 10:03 Vital Signs 03/26/19 03/26/19 07:51 09:48 Temperature 98.8 F 98.1 F Pulse Rate 82 86 Respiratory 18 18 Rate Blood Pressure 106/72 120/67 Assessment: 03/26/19 10:03 AOX3, no distress, ambulating in the unit withdrawal symptom persists. Plan: continue detox
[2019-03-26] MEDS: PRENATAL VITAMINS W/ FOLIC ACID TABLET (FP) PO SCH (10:21)
[2019-03-26] MEDS: NICOTINE 14 MG/24 HOURS TOPICAL PATCH TD SCH (10:22)
[2019-03-26] MEDS: diazePAM 5 MG TABLET PO SCH ×2 (10:22→23:29)
[2019-03-26] MEDS: THIAMINE HCL 100 MG TABLET (FP) PO SCH (23:29)
[2019-03-27] MEDS ORDERED: METHADONE HCL 40 MG DISPERSABLE TABLET ONE (04:17)
[2019-03-27] MEDS ORDERED: METHADONE HCL 10 MG TABLET ONE (04:17)
[2019-03-27] MEDS: METHADONE 40 MG, METHADONE 20 MG PO SCH (05:34)
[2019-03-27] MEDS ORDERED: diazePAM 5 MG TABLET PO SCH (06:00)
[2019-03-27] MEDS: PRENATAL VITAMINS W/ FOLIC ACID TABLET (FP) PO SCH (10:03)
[2019-03-27] MEDS: diazePAM 5 MG TABLET PO PRN (10:04)
[2019-03-27] MEDS: NICOTINE 14 MG/24 HOURS TOPICAL PATCH TD SCH (12:43)
--- NOTE | 2019-03-27 13:07 | CONSULT ---
[facility] Psychiatric Consult - Data Date of interview: 03/27/19 Admission source: [facility] Identifying data: Patient is a 34 y/o famale homeless admitted to this unit due to alcohol and heroin dependence Substance Abuse History: Patient is extremely sedated and drowsy and unable to full y partiocipate in a meaningful interview. However the nurse isisted that patient be seen because she was described acting bizarre, disrobig self in the unit for no reason. Methadone de[pendent 60 mg po daily. Patient was unable to provide relevant information Medical History: Reviewed from her records;. Hep C. History ofseizure disorder. Appendectomy in 2014 Psychiatric History: She has prior psychiatric hospityalization due to a diagnosis of Bipolar disorder. She feels anxious and nervous, seemed manipulative and requesting solely Klonopin. Past treatment with Abilify. Non compliant Physical/Sexual Abuse/Trauma History: Unable to assess Mental Status Exam - Mental Status Exam Alert and Oriented to: Person Cognitive Function: Impaired Patient Appearance: Unkempt, Disheveled, Bizarre Mood: Suspicious, Nervous, Apprehensive, Irritable Affect: Inappropriate, Constricted Patient Behavior: Sedated, Fatigued, Guarded, Suspicious Speech Pattern: Delayed, Slurred, Perseverating Voice Loudness: Mildly Loud, Excessive Variation Thought Process: Tangential, Flight of Ideas, Disorganized Thought Disorder: Bizarre Hallucinations: Denies Suicidal Ideation: Denies Homicidal Ideation: Denies Insight/Judgement: Impaired Sleep: Poorly Appetite: Fair Muscle strength/Tone: Mild Hypotonicity Gait/Station: Ataxic Psychiatric Findings - Problem List ([place] 1, 2,3) (1) Bipolar 1 disorder Current Visit: Yes Status: Acute (2) Opioid dependence on agonist therapy Current Visit: Yes Status: Acute (3) Alcohol dependence with uncomplicated withdrawal Current Visit: Yes Status: Chronic (4) Nicotine dependence Current Visit: Yes Status: Chronic Qualifiers: Nicotine product type: cigarettes Substance use status: uncomplicated Qualified Code(s): F17.210 - Nicotine dependence, cigarettes, uncomplicated (5) Cannabis abuse, uncomplicated Current Visit: No Status: Chronic (6) Cocaine dependence Current Visit: No Status: Chronic Qualifiers: Substance use status: uncomplicated Qualified Code(s): F14.20 - Cocaine dependence, uncomplicated (7) Seizures Current Visit: No Status: Suspected - Initial Treatment Plan Initial Treatment Plan: Observation for seizure and fall nurse made aware. Continue Detox treatment. Patient to be re-rasta;uated when fully wake and able tp particpate in a meaningful psychiatric interview for appropriate treatment plan and recommendations. She is requesting Klonopin medication duto her anxiety. Patient should be moniotred and remain off sedative medciation at this time
--- NOTE | 2019-03-27 13:46 | PN ---
S Progress Note (SOAP) Subjective: Anxious, irritable, angry Objective: 03/27/19 13:44 Last Vital Signs Temp Pulse Resp BP Pulse Ox 98.2 F 88 16 119/89 03/27/19 09:43 03/27/19 09:43 03/27/19 09:43 03/27/19 09:43 Laboratory Tests 03/24/19 03/25/19 03/25/19 19:14 07:00 07:00 WBC 3.8 L RBC 4.42 Hgb 11.8 Hct 36.6 MCV 82.9 MCH 26.6 MCHC 32.1 RDW 16.8 H Plt Count 151 D MPV 10.2 Sodium 144 Potassium 3.7 Chloride 109 H Carbon Dioxide 28 Anion Gap 7 L BUN 9 Creatinine 0.7 Est GFR (CKD-EPI)AfAm 131.94 Est GFR (CKD-EPI)NonAf 113.84 Random Glucose 118 H Calcium 8.6 Total Bilirubin 0.3 AST 56 H ALT 52 Alkaline Phosphatase 90 Total Protein 6.1 L Albumin 3.0 L POC Urine HCG, Qual Negative RPR Titer 03/25/19 07:00 WBC RBC Hgb Hct MCV MCH MCHC RDW Plt Count MPV Sodium Potassium Chloride Carbon Dioxide Anion Gap BUN Creatinine Est GFR (CKD-EPI)AfAm Est GFR (CKD-EPI)NonAf Random Glucose Calcium Total Bilirubin AST ALT Alkaline Phosphatase Total Protein Albumin POC Urine HCG, Qual RPR Titer Nonreactive Labs reviewed Assessment: 03/27/19 13:45 Withdrawal symptoms Noted to be disorganized with abnormal behavior (took night stand into bathroom , disrobing), has pphx of bipolar disorder and depression Plan: Continue detox Encouraged PO water hydration Disorganized behavior: send ammonia level and UA, will place on one to one observation for safety History of bipolar disorder/depression, disorganized: Psychiatric consult
[2019-03-27 17:34] VITALS: BP 104/52; PULSE 91; TEMP 97.5
--- NOTE | 2019-03-27 18:55 | PN ---
[facility] Progress Note Note: patient with bizarre behavior,history of bipolar disorder,seen and evaluated by Casper De La Cruz, threatening to burn down the unit Vital Signs Temperature 97.5 F L 03/27/19 17:33 Pulse Rate 91 H 03/27/19 17:33 Respiratory Rate 18 03/27/19 17:33 Blood Pressure 104/52 L 03/27/19 17:33 O2 Sat by Pulse Oximetry (%) uncontrollable behavior,has been place on 1on1 for patient safety DR Zapata informed by nurse,order patient to be transferred to [facility] for evaluation and treatment. 911 called, informed by Nurse
--- NOTE | 2019-03-27 21:15 | PN ---
[facility] Progress Note Note: Psychiatry Attending's on-call note : Informed earlier of this patient's state of agitation. As per staff, the patient is threatening to " destroy everything ". If not allowed to leave the institution. Ms Jones is currently on 1:1 observation. Since morning. Patient was already seen by Dr Escobedo. His note is appreciated. [facility] Maker came to [facility] to re-assess the patient. Met with medical attending, Dr Lew. Patient, as per Dr Lew, had become totally out of control on the unit. Creating an emergency situation. Ms Jones got transferred to the psychiatric emergency room at [facility] for safety. Before the arrival of Dr Zapata to [facility].
== END 2019-03-27 07:05 | DRG 773 ==
LOC: YASAS 13:33 → Y6N 20:31
PROVIDERS: ADMIT Surgery; ATTEND Surgery
PROC: HZ2ZZZZ Detoxification Services for Substance Abuse Treatment (ICD-10-PCS; principal; 2019-03-24)
DX: F10.230 Alcohol dependence with withdrawal, uncomplicated (principal); F11.20 Opioid dependence, uncomplicated; F14.20 Cocaine dependence, uncomplicated; F12.20 Cannabis dependence, uncomplicated; F17.210 Nicotine dependence, cigarettes, uncomplicated; F31.89 Other bipolar disorder; B18.2 Chronic viral hepatitis C; R45.6 Violent behavior; Z86.69 Personal history of other diseases of the nervous system and sense organs; Z91.013 Allergy to seafood
CPT/HCPCS: 36415; 80053; 81025; 85027; 86593; 93005; 93010

== ENCOUNTER 2024-09-01 13:30 | Inpatient (IN) | payer OTHER ==
[2024-09-01 14:16] VITALS: BMI 25.0
[2024-09-01] MEDS ORDERED: ONDANSETRON *ODT* 4 MG TABLET SL PRN (17:13)
[2024-09-01] MEDS ORDERED: POLYETHYLENE GLYCOL (HEALTHYLAX) 3350 17 GM PACKET PO PRN (17:13)
[2024-09-01] MEDS ORDERED: DICYCLOMINE HCL 10 MG CAPSULE PO PRN (17:13)
[2024-09-01] MEDS ORDERED: NALOXONE (NARCAN) HCL 4 MG/0.1 ML SPRAY NS PRN (17:13)
[2024-09-01] MEDS ORDERED: IBUPROFEN 400 MG TABLET (FP) PO PRN (17:13)
[2024-09-01] MEDS ORDERED: MAGNESIUM HYDROX 2400MG/30ML ORAL SUSPENSION 30 ML CUP PO PRN (17:13)
[2024-09-01] MEDS ORDERED: ACETAMINOPHEN 325 MG TABLET (FP) PO PRN (17:13)
[2024-09-01] MEDS ORDERED: BENZONATATE 200 MG CAPSULE PO PRN (17:13)
[2024-09-01] MEDS ORDERED: MAG HYDROX/AL HYDROX/SIMETH 30 ML UNIT-DOSE CUP PO PRN (17:13)
[2024-09-01] MEDS ORDERED: ASPIRIN 81 MG CHEWABLE TABLETS ONE (17:42)
[2024-09-01] MEDS: ASPIRIN 81 MG CHEWABLE TABLETS PO ONE (17:46)
[2024-09-01] MEDS ORDERED: levETIRAcetam 500 MG TABLET (FP) PO ONE (18:02)
[2024-09-01] MEDS: levETIRAcetam 500 MG TABLET (FP) PO ONE (18:04)
[2024-09-02] MEDS ORDERED: diazePAM 5 MG TABLET ONE ×2 (02:17→05:28)
[2024-09-02] MEDS ORDERED: MELATONIN 5 MG TABLETS ONE (02:17)
[2024-09-02] MEDS: THIAMINE 100 MG TABLET PO SCH (02:20)
[2024-09-02] MEDS: MELATONIN 5 MG TABLETS PO SCH (02:20)
[2024-09-02] MEDS: diazePAM 5 MG TABLET PO SCH (02:20)
[2024-09-02] MEDS ORDERED: methaDONE HCL 10 MG TABLET PO SCH (09:45)
[2024-09-02] MEDS ORDERED: PRENATAL VITAMINS W/ FOLIC ACID TABLET (FP) PO ONE (10:31)
[2024-09-02] MEDS ORDERED: levETIRAcetam 500 MG TABLET (FP) PO ONE (10:31)
[2024-09-02] MEDS: guaiFENesin 600 MG TABLET.ER (FP) PO PRN (10:33)
[2024-09-02] MEDS: levETIRAcetam 500 MG TABLET (FP) PO SCH (10:33)
[2024-09-02] MEDS: PRENATAL VITAMINS W/ FOLIC ACID TABLET (FP) PO SCH (10:33)
[2024-09-02] MEDS ORDERED: methaDONE HCL 10 MG TABLET ONE (11:00)
[2024-09-02] MEDS: methaDONE 40 MG, methaDONE 20 MG PO SCH (11:10)
[2024-09-02 17:43] LABS: CHLORIDE 109 mmol/L (98-107); POTASSIUM 3.7 mmol/L (3.5-5.1); SODIUM 142 mmol/L (136-145)
[2024-09-02 17:46] LABS: HEMATOCRIT 31.9 % (32.4-45.2); HEMOGLOBIN 10.7 GM/dL (10.7-15.3); MCH 27.7 pg (25.7-33.7); MCHC 33.4 g/dl (32.0-36.0); MEAN CELL VOLUME 82.9 fl (80-96); PLATELET COUNT 168 10^3/uL (134-434); RBC 3.85 M/mm3 (3.60-5.2); RDW 18.5 % (11.6-15.6); WHITE BLOOD COUNT 5.4 K/mm3 (4.0-10.0)
[2024-09-02 17:53] LABS: ALBUMIN 2.7 g/dl (3.4-5.0); ANION GAP 4 mmol/L (4-13); BLOOD UREA NITROGEN 7.7 mg/dL (7-18); CO2 30 mmol/L (21-32); GLUCOSE,RANDOM 103 mg/dL (74-106)
[2024-09-02 17:56] LABS: CREATININE 0.5 mg/dL (0.55-1.3); SGOT/AST 28 U/L (15-37); SGPT/ALT 33 U/L (13-61)
[2024-09-02 17:57] LABS: BILIRUBIN,TOTAL 0.2 mg/dL (0.2-1); TOT PROT 5.9 g/dl (6.4-8.2)
[2024-09-02 17:58] LABS: ALK PHOS 65 U/L (45-117)
[2024-09-02] MEDS: LOPERAMIDE HCL 2 MG CAPSULE PO PRN (22:46)
[2024-09-02] MEDS: BISMUTH SUBSALICYLATE 524 MG/30 ML PO PRN (22:47)
[2024-09-03] MEDS: diazePAM 5 MG TABLET PO PRN (10:00)
[2024-09-03] MEDS: methaDONE 40 MG, methaDONE 20 MG PO ONE (10:53)
[2024-09-03] MEDS: methaDONE HCL 10 MG TABLET PO ONE (11:25)
[2024-09-03] MEDS: diazePAM 5 MG TABLET PO SCH (14:17)
[2024-09-03] MEDS: METHOCARBAMOL 500 MG TABLET PO PRN (15:52)
[2024-09-03] MEDS: hydrOXYzine PAMOATE 25 MG CAPSULE (FP) PO PRN (15:52)
[2024-09-03] MEDS: BENZOCAINE/MENTHOL (CHLORASEPTIC ) LOZENGE MM PRN (15:54)
[2024-09-03] MEDS: ALBUTEROL SO4 2.5/IPRATROPIUM 0.5 INH SOL 3 ML VIAL.NEB. NEB PRN (20:52)
[2024-09-04] MEDS: diazePAM 5 MG TABLET PO SCH (06:24)
[2024-09-04] MEDS: predniSONE 10 MG TABLET (UD) PO SCH (17:22)
[2024-09-04] MEDS: ALBUTEROL SO4 2.5/IPRATROPIUM 0.5 INH SOL 3 ML VIAL.NEB. NEB ONE (17:22)
[2024-09-04] MEDS: IBUPROFEN 600 MG TABLET (FP) PO PRN (23:03)
[2024-09-05] MEDS: ALBUTEROL SO4 2.5/IPRATROPIUM 0.5 INH SOL 3 ML VIAL.NEB. NEB PRN (03:34)
[2024-09-05] MEDS: diazePAM 5 MG TABLET PO ONE (05:45)
[2024-09-05] MEDS: DIPHENOXYLATE 2.5/ATROPINE.025 1 COMBO TABLET PO ONE (15:48)
[2024-09-07] MEDS: DIPHENOXYLATE 2.5/ATROPINE.025 1 COMBO TABLET PO ONE (10:07)
[2024-09-07] MEDS ORDERED: DIPHENOXYLATE 2.5/ATROPINE.025 1 COMBO TABLET PO PRN (10:58)
[2024-09-07] MEDS: methaDONE 40 MG, methaDONE 20 MG PO ONE (13:28)
[2024-09-07 17:51] VITALS: RESP 16
[2024-09-08 10:05] VITALS: BP 100/60; PULSE 74; TEMP 97.6
[2024-09-08] MEDS: NALOXONE (NYS OPIOID OVERDOSE PROGRAM) 4 MG/0.1 ML SPRAY NS PRN (11:09)
== END 2024-09-08 11:18 | disposition home or self-care (01) | DRG 773 ==
LOC: YASAS 13:30 → Y6N 17:33
PROVIDERS: ADMIT Allergy & Immunology; ATTEND Allergy & Immunology
PROC: HZ2ZZZZ Detoxification Services for Substance Abuse Treatment (ICD-10-PCS; principal; 2024-09-01)
DX: F10.230 Alcohol dependence with withdrawal, uncomplicated (principal); F13.230 Sedative, hypnotic or anxiolytic dependence with withdrawal, uncomplicated; F14.20 Cocaine dependence, uncomplicated; F11.20 Opioid dependence, uncomplicated; F12.10 Cannabis abuse, uncomplicated; F17.210 Nicotine dependence, cigarettes, uncomplicated; J45.20 Mild intermittent asthma, uncomplicated; R56.9 Unspecified convulsions; R05.9 Cough, unspecified; Z86.19 Personal history of other infectious and parasitic diseases; S01.91XA Laceration without foreign body of unspecified part of head, initial encounter; W01.0XXA Fall on same level from slipping, tripping and stumbling without subsequent striking against object, initial encounter; Y93.89 Activity, other specified; Y92.230 Patient room in hospital as the place of occurrence of the external cause
CPT/HCPCS: 0241U-QW; 36415; 71046-TC-FY; 80053; 80305; 80307; 81025; 84703; 85027; 86780; 93005; 93010; 94640; 99285-25

== ENCOUNTER 2024-09-05 17:56 | Emergency (ER) | payer OTHER ==
[2024-09-05 20:04] VITALS: BP 119/68; PULSE 76; RESP 18; TEMP 97.9; BMI 26.6
[2024-09-05] MEDS ORDERED: FAMOTIDINE 20 MG/50 ML IVPB 20 MG/50 ML MG IVPB ONE (20:56)
[2024-09-05] MEDS: FAMOTIDINE 20 MG/50 ML IVPB 20 MG/50 ML MG IVPB ONE (21:35)
[2024-09-05 21:39] LABS: BASO % 0.2 % (0-2.0); EOS % 0.3 % (0-4.5); HEMATOCRIT 32.8 % (32.4-45.2); HEMOGLOBIN 10.6 GM/dL (10.7-15.3); LYMPH % 7.6 % (8-40); MCH 26.7 pg (25.7-33.7); MCHC 32.5 g/dl (32.0-36.0); MEAN CELL VOLUME 82.2 fl (80-96); MEAN PLT VOLUME 9.6 fl (7.5-11.1); MONO % 5.1 % (3.8-10.2); NEUT % 86.8 % (42.8-82.8); PLATELET COUNT 192 10^3/uL (134-434); RBC 3.98 M/mm3 (3.60-5.2); RDW 18.2 % (11.6-15.6); WHITE BLOOD COUNT 9.7 K/mm3 (4.0-10.0)
[2024-09-05 22:08] LABS: POTASSIUM 4.3 mmol/L (3.5-5.1)
[2024-09-05 22:11] LABS: ALBUMIN 2.9 g/dl (3.4-5.0)
[2024-09-05 22:14] LABS: CREATININE 0.6 mg/dL (0.55-1.3)
[2024-09-05 22:15] LABS: BILIRUBIN,TOTAL 0.2 mg/dL (0.2-1); TOT PROT 6.4 g/dl (6.4-8.2)
[2024-09-05 22:16] LABS: BLOOD UREA NITROGEN 11.4 mg/dL (7-18); CALCIUM 9.3 mg/dL (8.5-10.1); MAGNESIUM 2.3 mg/dL (1.8-2.4)
[2024-09-05] MEDS ORDERED: ONDANSETRON 4 MG/2 ML VIAL IVPUSH ONE (22:32)
== END 2024-09-05 23:29 | disposition home or self-care (01) ==
LOC: JER 17:56
DX: R11.2 Nausea with vomiting, unspecified (principal); R19.7 Diarrhea, unspecified
CPT/HCPCS: 36415; 80053; 83690; 83735; 85025; 93005; 93010; 99284-25

== ENCOUNTER 2024-09-06 06:07 | Emergency (ER) | payer OTHER ==
[2024-09-06 06:22] VITALS: BP 119/78; PULSE 67; RESP 19; TEMP 97.9; BMI 23.6
== END 2024-09-06 10:00 | disposition home or self-care (01) ==
LOC: JER 06:07
PROC: 0HQ0XZZ Repair Scalp Skin, External Approach (ICD-10-PCS; principal; 2024-09-06)
DX: S01.01XA Laceration without foreign body of scalp, initial encounter (principal); K52.9 Noninfective gastroenteritis and colitis, unspecified; W01.0XXA Fall on same level from slipping, tripping and stumbling without subsequent striking against object, initial encounter
CPT/HCPCS: 12001-25; 70450-TC; 99285-25